=== PATIENT | female | born 1930 | race Caucasian/White ===

== ENCOUNTER 2017-09-14 09:03 | Emergency (ER) | payer OTHER ==
[~2017-09-14] VITALS: Ht 160 cm; Wt 41.8 kg
[2017-09-14] VITALS (7 sets, daily range): BP systolic 115–172; BP diastolic 47–67; PULSE 53–97; RESP 16–20; TEMP 97.5; O2SAT 96–100
[~2017-09-14 09:03] MED LIST: DICY10 PO; LEVO.05 PO; LOMO PO; LOMO2.5T PO; TAB-TAB PO
[2017-09-14] MEDS ORDERED: LEVO25TA4 PO (09:21)
--- NOTE | 2017-09-14 09:55 | PD ---
HPI Chief Complaint: Pain: Acute or Chronic Time Seen by Provider: 09:38 Travel History International Travel<30 days: No Contact w/Intl Traveler<30days: No Traveled to known affect area: No History of Present Illness HPI Patient presents to the emergency department complaining of abdominal pain. She had the shingles and finished medication a couple days ago. Was complaining of right upper quadrant pain, intermittent, a few minutes in duration but at night is constant, radiates to back, no alleviating or aggravating factors. She took tramadol at 530 this morning. She denies fever, chills, vomiting, but reports nausea. Also reporting unable to eat or sleep secondary to the pain. PFSH Past Medical History Cardiovascular Problems: No Diabetes: No Diminished Hearing: No Genitourinary: No Musculoskeletal: No Neurologic: No Reproductive: No Respiratory: No Thyroid Disease: Yes Past Surgical History Eye Surgery: Yes (BILAT. CATARACTS REMOVED) Thoracic Surgery: No Other Surgery: Yes Social History Alcohol Use: Yes (OCC) Tobacco Use: No Substance Use: No Allergies-Medications (Allergen,Severity, Reaction): Coded Allergies: Sulfa (Sulfonamide Antibiotics) (Unverified Allergy, Severe, Dizziness, ) Reported Meds & Prescriptions Reported Meds & Active Scripts Active Macrobid (Nitrofurantoin Monoh/Nitrofur Macro) 100 Mg Cap 100 Mg PO BID 5 Days Reported Levothyroxine (Levothyroxine Sodium) 25 Mcg Tab 0.07 Mcg PO DAILY Review of Systems Except as stated in HPI: all other systems reviewed are Neg Physical Exam Narrative GENERAL: No acute distress. SKIN: Resolving zoster lesions right breast and right upper back. HEAD: Atraumatic. Normocephalic. EYES: Pupils equal and round. scleral icterus. No injection or drainage. ENT: No nasal bleeding or discharge. Mucous membranes pink and moist. NECK: Trachea midline. No JVD. CARDIOVASCULAR: Regular rate and rhythm. No murmur appreciated. RESPIRATORY: No accessory muscle use. Clear to auscultation. Breath sounds equal bilaterally. GASTROINTESTINAL: Abdomen soft, epigastric tenderness to palpation, nondistended. MUSCULOSKELETAL: No obvious deformities. No clubbing. No cyanosis. No edema. NEUROLOGICAL: Awake and alert. No obvious cranial nerve deficits. Motor grossly within normal limits. Normal speech. PSYCHIATRIC: Appropriate mood and affect; insight and judgment normal. Data Data Last Documented VS Vital Signs Date Time Temp Pulse Resp B/P (MAP) Pulse Ox O2 Delivery O2 Flow Rate FiO2 09/14/17 14:36 77 20 172/56 (94) 100 09/14/17 09:08 97.5 Orders Orders Complete Blood Count With Diff (09/14/17 09:50) Comprehensive Metabolic Panel (09/14/17 09:50) Lipase (09/14/17 09:50) Prothrombin Time / Inr (Pt) (09/14/17 09:50) Act Partial Throm Time (Ptt) (09/14/17 09:50) Us Abdomen Gallbladder (09/14/17 ) Iv Access Insert/Monitor (09/14/17 09:50) Ecg Monitoring (09/14/17 09:50) Oximetry (09/14/17 09:50) Sodium Chloride 0.9% Flush (Ns Flush) (09/14/17 10:00) Ct Abd/Pel W Iv Contrast(Rout) (09/14/17 12:10) Iohexol 350 Inj (Omnipaque 350 Inj) (09/14/17 13:40) Urinalysis - C+S If Indicated (09/14/17 14:25) Morphine Inj (Morphine Inj) (09/14/17 14:30) Troponin I (09/14/17 15:09) Urine Culture (09/14/17 15:40) Labs Laboratory Tests Test 09/14/17 10:00 09/14/17 15:40 White Blood Count 6.0 TH/MM3 Red Blood Count 3.58 MIL/MM3 Hemoglobin 12.2 GM/DL Hematocrit 35.1 % Mean Corpuscular Volume 98.1 FL Mean Corpuscular Hemoglobin 34.2 PG Mean Corpuscular Hemoglobin Concent 34.9 % Red Cell Distribution Width 12.3 % Platelet Count 295 TH/MM3 Mean Platelet Volume 7.8 FL Neutrophils (%) (Auto) 67.4 % Lymphocytes (%) (Auto) 23.2 % Monocytes (%) (Auto) 7.2 % Eosinophils (%) (Auto) 1.6 % Basophils (%) (Auto) 0.6 % Neutrophils # (Auto) 4.1 TH/MM3 Lymphocytes # (Auto) 1.4 TH/MM3 Monocytes # (Auto) 0.4 TH/MM3 Eosinophils # (Auto) 0.1 TH/MM3 Basophils # (Auto) 0.0 TH/MM3 CBC Comment DIFF FINAL Differential Comment Prothrombin Time 10.7 SEC Prothromb Time International Ratio 1.1 RATIO Activated Partial Thromboplast Time 25.0 SEC Blood Urea Nitrogen 17 MG/DL Creatinine 0.86 MG/DL Random Glucose 95 MG/DL Total Protein 7.1 GM/DL Albumin 3.3 GM/DL Calcium Level 9.0 MG/DL Alkaline Phosphatase 50 U/L Aspartate Amino Transf (AST/SGOT) 20 U/L Alanine Aminotransferase (ALT/SGPT) 18 U/L Total Bilirubin 0.6 MG/DL Sodium Level 139 MEQ/L Potassium Level 3.9 MEQ/L Chloride Level 105 MEQ/L Carbon Dioxide Level 27.4 MEQ/L Anion Gap 7 MEQ/L Estimat Glomerular Filtration Rate 62 ML/MIN Troponin I LESS THAN 0.02 NG/ML Lipase 115 U/L Urine Collection Type CLEAN CATCH Urine Color YELLOW Urine Turbidity SL CLOUDY Urine pH 6.5 Urine Specific [place] LESS/EQUAL 1.005 Urine Protein NEG mg/dL Urine Glucose (UA) NEG mg/dL Urine Ketones TRACE mg/dL Urine Occult Blood MOD Urine Nitrite POS Urine Bilirubin NEG Urine Urobilinogen 0.2 MG/DL Urine Leukocyte Esterase TRACE Urine RBC 10-14 /hpf Urine WBC 25-49 /hpf Urine WBC Clumps MOD Urine Squamous Epithelial Cells 0-5 /hpf Urine Bacteria MOD /hpf Microscopic Urinalysis Comment CULTURE INDICATED Urine Collection Time 15:40 MDM Medical Decision Making Medical Screen Exam Complete: Yes Emergency Medical Condition: Yes Interpretation(s) EKG: sinus rhythm, rate 70, left anterior fascicular block Labs: CBC, chemistry, coags within normal; UA consistent with UTI, urine culture pending; troponin negative Last Impressions Abdomen/Pelvis CT 09/14/17 1210 Signed Impressions: Service Date/Time: Thursday, September 14, 2017 13:32 - CONCLUSION: 1. 2 densely calcified gallstones in a distended gallbladder. 2. Otherwise negative CT abdomen/pelvis with contrast. Valdemar Ray MD Gall Bladder Ultrasound 09/14/17 0000 Signed Impressions: Service Date/Time: Thursday, September 14, 2017 10:52 - CONCLUSION: Multiple gallstones with normal dimension common hepatic duct. Valdemar Ray MD Differential Diagnosis Pancreatitis, cholecystitis, pain from zoster, hepatitis, gallstones, UTI Narrative Course Patient presents to the emergency department complaining of epigastric abdominal pain. She is afebrile vital signs are stable. On exam she has scleral icterus and epigastric abdominal pain. Ordered labs and a right upper quadrant ultrasound. Patient given 2 mg IV morphine, which she states helped her symptoms. Physician Communication Physician Communication Spoke to the physician percussion tuner for Dr. Henderson discussed case. Advised to have patient follow-up in the morning. Diagnosis Primary Impression: Urinary tract infection Qualified Codes: N39.0 - Urinary tract infection, site not specified Additional Impression: Abdominal pain Qualified Codes: R10.13 - Epigastric pain Patient Instructions: Abdominal Pain (ED), General Instructions Additional Instructions: 1. Meds as directed. 2. Follow-up primary care doctor tomorrow. 3. Return to the ER for fever, chest pain, shortness of breath, worsening abdominal pain, bloody diarrhea, inability to urinate, or any new/worrisome/worsening symptoms. Scripts Nitrofurantoin Monohydrate Macrocrystals (Macrobid) 100 Mg Cap 100 MG PO BID for Infection for 5 Days, #10 CAP 0 Refills Prov: Katerina Rao MD 09/14/17 Disposition: 01 DISCHARGE HOME Condition: Stable Katerina Rao MD September 14, 2017 09:55
[2017-09-14] MEDS ORDERED: SODIUM CHLORIDE 0.9% FLUSH 10 ML FLUSH IV FLUSH PRN (10:00)
[2017-09-14 10:10] LABS: AUTOMATED NEUTROPHIL # 4.1 TH/MM3 (1.8-7.7); BASOPHIL % 0.6 % (0.0-2.0); EOSINOPHIL # 0.1 TH/MM3 (0-0.4); EOSINOPHIL % 1.6 % (0.0-4.0); HEMATOCRIT 35.1 % (35.0-46.0); HEMOGLOBIN 12.2 GM/DL (11.6-15.3); LYMPH % 23.2 % (9.0-44.0); LYMPHOCYTE # 1.4 TH/MM3 (1.0-4.8); MEAN CELL VOLUME 98.1 FL (80.0-100.0); MEAN CORPUSCULAR HEMOGLOBIN 34.2 PG (27.0-34.0); MEAN CORPUSCULAR HGB CONC 34.9 % (32.0-36.0); MEAN PLATELET VOLUME 7.8 FL (7.0-11.0); MONO % 7.2 % (0.0-8.0); MONOCYTE # 0.4 TH/MM3 (0-0.9); NEUT % 67.4 % (16.0-70.0); PLATELET COUNT 295 TH/MM3 (150-450); RED BLOOD COUNT 3.58 MIL/MM3 (4.00-5.30); RED CELL DISTRIBUTION WIDTH 12.3 % (11.6-17.2)
[2017-09-14 10:16] LABS: CHLORIDE 105 MEQ/L (98-107); SODIUM (NA) 139 MEQ/L (136-145)
[2017-09-14 10:20] LABS: ALBUMIN 3.3 GM/DL (3.4-5.0); BICARBONATE 27.4 MEQ/L (21.0-32.0); BLOOD UREA NITROGEN 17 MG/DL (7-18); GLUCOSE,RANDOM 95 MG/DL (74-106)
[2017-09-14 10:22] LABS: ALT (GPT) 18 U/L (10-53); AST (GOT) 20 U/L (15-37); CREATININE 0.86 MG/DL (0.50-1.00); GLOMERULAR FILTRATION RATE 62 ML/MIN (>89)
[2017-09-14 10:24] LABS: TOTAL BILIRUBIN ADULT 0.6 MG/DL (0.2-1.0); TOTAL PROTEIN 7.1 GM/DL (6.4-8.2)
[2017-09-14 10:25] LABS: ALKALINE PHOSPHATASE 50 U/L (45-117); INTERNATIONAL NORMALIZED RATIO 1.1 RATIO; PROTHROMBIN TIME - PATIENT 10.7 SEC (9.8-11.6)
--- NOTE | 2017-09-14 11:58 | RADRPT ---
EXAM DATE/TIME: 09/14/2017 10:52 [facility] COMPARISON: No previous studies available for comparison. INDICATIONS : Right upper quadrant pain. MEDICAL HISTORY : Thyroid disease. SURGICAL HISTORY : Bilateral cataract surgery. Pins in right hip. ENCOUNTER: Initial ACUITY: 4-6 days PAIN SCORE: 2/10 LOCATION: Right upper quadrant MEASUREMENTS: LIVER: 12.1 cm length COMMON DUCT: 5 mm RIGHT KIDNEY: 8.7 x 3.2 x 3.4 cm FINDINGS: LIVER: Normal echotexture without focal lesion or ductal dilatation. Hepatopedal flow is seen in the portal vein. COMMON DUCT: No intraluminal mass or stone visualized. GALLBLADDER: There are 2 echogenic gallstones in the fundus which demonstrate acoustic shadowing and measure 12 mm and 13 mm. Gallbladder wall thickness is normal. No pericholecystic fluid. PANCREAS: The visualized portions are within normal limits. RIGHT KIDNEY: No evidence of hydronephrosis, stone, or mass. Extrarenal pelvis is minimally prominent. CONCLUSION: Multiple gallstones with normal dimension common hepatic duct. Valdemar Ray MD on September 14, 2017 at 11:54 Board Certified Radiologist. This report was verified electronically.
[2017-09-14] MEDS ORDERED: IOHEXOL 350 MG/ML 10 ML VIAL (for RAD DIAG) IVCONTRAST ONE (13:40)
--- NOTE | 2017-09-14 13:59 | RADRPT ---
EXAM DATE/TIME: 09/14/2017 13:32 [facility] COMPARISON: US ABDOMEN - GALLBLADDER, September 14, 2017, 10:52. INDICATIONS : Right upper quadrant pain. Abnormal ultrasound. IV CONTRAST: 85 cc Omnipaque 350 (iohexol) IV ORAL CONTRAST: No oral contrast ingested. RADIATION DOSE: 4.49 CTDIvol (mGy) MEDICAL HISTORY : None SURGICAL HISTORY : Right hip surgery. ENCOUNTER: Initial ACUITY: 3 days PAIN SCALE: 6/10 LOCATION: Right upper quadrant TECHNIQUE: Volumetric scanning of the abdomen and pelvis was performed. Using automated exposure control and ad justment of the mA and/or kV according to patient size, radiation dose was kept as low as reasonably achievable to obtain optimal diagnostic quality images. DICOM format image data is available electro nically for review and comparison. FINDINGS: LOWER LUNGS: The visualized lower lungs are clear. LIVER: Homogeneous density without lesion. There is no dilation of the biliary tree. The gallbladder is di stended and contains 2 densely calcified stones measuring up to 8 mm in size.. SPLEEN: Normal size without lesion. PANCREAS: Within normal limits. KIDNEYS: Normal in size and shape. There is no mass, stone or hydronephrosis. 7 mm cyst cortex lower pole le ft kidney. ADRENAL GLANDS: Within normal limits. VASCULAR: There is no aortic aneurysm. BOWEL/MESENTERY: The stomach, small bowel, and colon demonstrate no acute abnormality. There is no free intraperitone al air or fluid. ABDOMINAL WALL: Within normal limits. RETROPERITONEUM: There is no lymphadenopathy. BLADDER: No wall thickening or mass. REPRODUCTIVE: Within normal limits. INGUINAL: There is no lymphadenopathy or hernia. MUSCULOSKELETAL: Right intratrochanteric nail in place. Diffuse osteopenia. CONCLUSION: 1. 2 densely calcified gallstones in a distended gallbladder. 2. Otherwise negative CT abdomen/pelvis with contrast. Valdemar Ray MD on September 14, 2017 at 13:52 Board Certified Radiologist. This report was verified electronically.
[2017-09-14] MEDS ORDERED: MORPHINE SULFATE 2 MG/ML SYRINGE IV PUSH ONE (14:30)
[2017-09-14 15:54] LABS: BILIRUBIN, URINE NEG (NEG); BLOOD, URINE MOD (NEG); GLUCOSE,URINE NEG (NEG); KETONE, URINE TRACE mg/dL (NEG); NITRITE,URINE POS (NEG); PH, URINE 6.5 (5.0-8.5); URINE COLOR YELLOW (YELLW/STRAW); URINE LEUKOCYTE ESTERASE TRACE (NEG)
[2017-09-14 16:05] LABS: BACTERIA, URINE MOD /hpf; SQUAMOUS EPITHELIAL CELL URINE 0-5 /hpf (0-5); WHITE BLOOD CELL CLUMPS MOD
[2017-09-14] MEDS ORDERED: MACR100C2 PO (16:07)
--- NOTE | 2017-09-14 22:49 | EKG ---
Date Performed: 09/14/2017 Time Performed: 15:06:08 PTAGE: 87 years EKG: Sinus rhythm LEFT AXIS DEVIATION ABNORMAL ECG NO PREVIOUS TRACING DOCTOR: Daniel Ko Interpretating Date/Time 09/14/2017 22:47:18
== END 2017-09-14 16:28 | disposition home or self-care (01) ==
LOC: PHED 09:03
DX: N39.0 Urinary tract infection, site not specified (principal); R10.13 Epigastric pain; B02.9 Zoster without complications; E07.9 Disorder of thyroid, unspecified; R94.31 Abnormal electrocardiogram [ECG] [EKG]; B96.20 Unspecified Escherichia coli [E. coli] as the cause of diseases classified elsewhere
CPT/HCPCS: 74177; 76705; 80053; 81001; 83690; 84484; 85025; 85610; 85730; 87077; 87086; 87186; 93005; 96374; 99285; J2270; Q9967